=== PATIENT | female | born 1960 ===

== ENCOUNTER 2018-12-04 07:34 | Day surgery (SDC) | payer OTHER ==
[~2018-12-04] VITALS: Ht 165.1 cm; Wt 58.0 kg
[2018-12-04 08:00] VITALS: BP 154/91
[2018-12-04 11:54] VITALS: BP 110/75
== END 2018-12-04 11:20 | disposition home or self-care (01) ==
LOC: DS 07:34 → GI 09:30 → OR 09:45 → DS 11:20
DX: R11.0 Nausea (principal); R63.4 Abnormal weight loss; R63.0 Anorexia; D64.9 Anemia, unspecified; M17.0 Bilateral primary osteoarthritis of knee; F41.8 Other specified anxiety disorders; E78.00 Pure hypercholesterolemia, unspecified; Z79.899 Other long term (current) drug therapy; Z85.42 Personal history of malignant neoplasm of other parts of uterus; Z90.710 Acquired absence of both cervix and uterus; Z80.0 Family history of malignant neoplasm of digestive organs
CPT/HCPCS: 43235; J1200; J1610; J2250; J2310; J3010; J3490